=== PATIENT | male | born 1930 | race Caucasian/White ===

== ENCOUNTER 2016-11-21 18:44 | Emergency (ER) | payer OTHER, MEDICARE ==
[~2016-11-21] VITALS: Ht 177.8 cm; Wt 105.7 kg
[~2016-11-21 18:44] MED LIST: DECADRON4 MG PO; HYDROCODON-ACE1 EAC7 PO; HYTRIN10 MG PO; LO-DOSE ASPIRIN81 M2 PO; LOPRESSOR50 MG PO; MEDROL DOSEPAK4 MG PO; METFORMIN HCL500 MG PO; MORPHINE SULFAT15 M1 PO; SIMVASTATIN40 MG PO; SKELAXIN800 MG PO
[2016-11-21 22:40] VITALS: BP 116/54
== END 2016-11-21 22:42 | disposition home or self-care (01) ==
LOC: EME 18:44
DX: M25.511 Pain in right shoulder (principal); M25.512 Pain in left shoulder; M54.5 Low back pain; I10 Essential (primary) hypertension; W18.11XA Fall from or off toilet without subsequent striking against object, initial encounter
CPT/HCPCS: 71020; 72170; 99281; 99285

== ENCOUNTER 2016-11-23 15:06 | Inpatient (IN) | payer OTHER, MEDICARE ==
[~2016-11-23] VITALS: Ht 177.8 cm; Wt 89.0 kg
[2016-11-23 08:45] VITALS: BP 99/63
[2016-11-23 17:05] LABS: HEMATOCRIT 32.9 % (38.0-50.0); MCH 31.6 PG (29.0-34.0); MCHC 33.4 G/DL (30.0-36.0); MCV 94.5 FL (86-99); RBC DIS.WIDTH-CV 14.7 % (11.8-14.6); RBC DIS.WIDTH-SD 47.4 % (39-53); RED BLOOD COUNT 3.48 M/uL (4.00-5.50); WHITE BLOOD COUNT 10.5 K/uL (4.1-10.2)
[2016-11-23 17:07] LABS: EOSINOPHIL (%) 0 % (0-5); IMMATURE GRANULOCYTE (%) 0.3 % (0.0-0.7); IMMATURE GRANULOCYTE COUNT 0.3 K/uL; LYMPHOCYTE COUNT 0.1 K/uL (1.0-2.8); MONOCYTE (%) 3.1 % (3-12); MONOCYTE COUNT 0.3 K/uL (0-0.8); NEUTROPHIL (%) 95.5 % (45-76)
[2016-11-23 17:15] LABS: CHLORIDE 91 mEq/L (99-109); POTASSIUM 4.5 mEq/L (3.7-5.4); SODIUM 125 mEq/L (136-147)
[2016-11-23 17:18] LABS: GLUCOSE 283 mg/dL (70-99)
[2016-11-23 17:19] LABS: ANION GAP 11 MEQ/L (2-14)
[2016-11-23 17:20] LABS: TOTAL BILIRUBIN 0.8 mg/dL (0.0-1.0)
[2016-11-23 17:21] LABS: ALKALINE PHOSPHATASE 95 IU/L (3-129)
[2016-11-23 17:22] LABS: GFR ESTIMATE (CALCULATED) > 59 mL/min/
[2016-11-23 17:23] LABS: UREA NITROGEN (BUN) 23 mg/dL (9-23)
[2016-11-23 18:17] LABS: HEMATOLOGY COMMENT 1 SMEAR COMPATIBLE; MEAN PLAT.VOLUME 8.7 uM^3 (9.0-12.4); PLAT.SUFFICIENCY DECREASED; PLATELET COUNT 38 K/uL (156-360)
[2016-11-23] MEDS ORDERED: DURAGESIC25 MCG TD (18:37)
[2016-11-23] MEDS ORDERED: BENAZEPRIL HCL40 MG PO (18:37)
[2016-11-23] MEDS ORDERED: HYDROCODON-ACE1 EAC8 PO (18:38)
[2016-11-23 20:46] VITALS: BP 99/63
[2016-11-24] VITALS: BP 128/60
[2016-11-24 00:15] LABS: POINT-OF-CARE METER ID UU14149397
[2016-11-24 03:59] VITALS: BP 133/64
[2016-11-24 05:46] LABS: HEMATOCRIT 28.7 % (38.0-50.0); MCH 31.2 PG (29.0-34.0); MCHC 33.4 G/DL (30.0-36.0); MCV 93.2 FL (86-99); RBC DIS.WIDTH-CV 14.9 % (11.8-14.6); RBC DIS.WIDTH-SD 50.7 % (39-53); RED BLOOD COUNT 3.08 M/uL (4.00-5.50); WHITE BLOOD COUNT 7.5 K/uL (4.1-10.2)
[2016-11-24 06:15] LABS: ALKALINE PHOSPHATASE 74 IU/L (3-129); ANION GAP 7 MEQ/L (2-14); CHLORIDE 91 MEQ/L (99-109); GFR ESTIMATE (CALCULATED) > 59 mL/min/; GLUCOSE 235 mg/dL (70-99); POTASSIUM 4.1 MEQ/L (3.7-5.4); SAMPLE HEMOLYSIS CHECK 0; SAMPLE ICTERIC CHECK 0; SAMPLE LIPEMIA CHECK 0; SODIUM 122 MEQ/L (136-147); TOTAL BILIRUBIN 0.5 MG/DL (0.0-1.0); UREA NITROGEN (BUN) 26 mg/dL (9-23)
[2016-11-24 07:36] LABS: HEMATOLOGY COMMENT 1 SMEAR COMPATIBLE; MEAN PLAT.VOLUME 9.7 uM^3 (9.0-12.4); PLATELET COUNT 33 K/uL (156-360)
[2016-11-24 08:44] VITALS: BP 137/85
[2016-11-24 12:08] VITALS: BP 135/70
[2016-11-24 12:37] LABS: POINT-OF-CARE METER ID UU14149397
[2016-11-24 14:24] LABS: ANION GAP 9 MEQ/L (2-14); CHLORIDE 89 MEQ/L (99-109); GFR ESTIMATE (CALCULATED) > 59 mL/min/; GLUCOSE 210 mg/dL (70-99); POTASSIUM 4.3 MEQ/L (3.7-5.4); SAMPLE HEMOLYSIS CHECK 0; SAMPLE ICTERIC CHECK 0; SAMPLE LIPEMIA CHECK 0; SODIUM 125 MEQ/L (136-147); UREA NITROGEN (BUN) 24 mg/dL (9-23)
[2016-11-24 14:25] LABS: GLOBULINS 2.5 G/DL (2.3-3.5)
[2016-11-24 14:33] LABS: PSA FREE 0.29 ng/mL
[2016-11-24 16:31] VITALS: BP 142/80
[2016-11-24 17:10] LABS: POINT-OF-CARE METER ID UU14149397
[2016-11-24 20:07] LABS: INTER. NORMALIZED RATIO 1.1; PROTHROMBIN TIME 11.6 (9.2-11.2); PTT 31.1 (25-32)
[2016-11-24 20:35] LABS: FIBRINOGEN 518 MG/DL (160-450)
[2016-11-24 20:46] VITALS: BP 135/61
[2016-11-24 21:01] LABS: D-DIMER LATEX POSITIVE
[2016-11-24 21:46] LABS: POINT-OF-CARE METER ID UU14149397
[2016-11-24 21:46] LABS: SCHISTOCYTES RARE
[2016-11-25] VITALS (8 sets, daily range): BP systolic 96–144; BP diastolic 55–86
[2016-11-25 06:33] LABS: POINT-OF-CARE METER ID UU14149397
[2016-11-25 07:13] LABS: ALKALINE PHOSPHATASE 85 IU/L (3-129); ANION GAP 9 MEQ/L (2-14); CHLORIDE 92 MEQ/L (99-109); GFR ESTIMATE (CALCULATED) > 59 mL/min/; GLUCOSE 248 mg/dL (70-99); MAGNESIUM 1.9 mg/dl (1.3-2.7); POTASSIUM 4.3 MEQ/L (3.7-5.4); SAMPLE HEMOLYSIS CHECK 0; SAMPLE ICTERIC CHECK 0; SAMPLE LIPEMIA CHECK 0; SODIUM 123 MEQ/L (136-147); TOTAL BILIRUBIN 0.4 MG/DL (0.0-1.0); UREA NITROGEN (BUN) 27 mg/dL (9-23)
[2016-11-25 09:15] LABS: HPCA INDEX 0.07
[2016-11-25 11:54] LABS: ADD MIUA? YES; BILIRUBIN SMALL; BLOOD LARGE; COLOR DK YELLOW ((YELLOW)); GLUCOSE (STRIP) 500; KETONES 15; LEUKOCYTES SMALL; NITRITE NEGATIVE; PROTEIN (STRIP) 100; SPECIFIC GRAVITY 1.038 (1.000-1.030); UROBILINOGEN 0.2 MG/DL (0.2-1.0)
[2016-11-25 12:57] LABS: BACTERIA 1+; CASTS PRESENT /LPF; CRYSTALS NONE SEEN; EPITHELIAL CELLS NONE SEEN; FINE GRANULAR CASTS RARE /LPF; MUCUS NONE SEEN; UCUL ADDED? NO
[2016-11-25 13:06] LABS: UR CREATININE CONCENTRATION 132.8 MG/DL
[2016-11-25 15:01] LABS: Heparin Induced Plt Ab Negative (Negative)
[2016-11-25 16:55] LABS: UFH SRA Result Negative (Negative)
[2016-11-25 20:11] LABS: EOSINOPHIL (%) 0 % (0-5); HEMATOCRIT 25.1 % (38.0-50.0); IMMATURE GRANULOCYTE (%) 0.4 % (0.0-0.7); LYMPHOCYTE COUNT 0.1 K/uL (1.0-2.8); MCH 31.2 PG (29.0-34.0); MCHC 33.5 G/DL (30.0-36.0); MCV 93.3 FL (86-99); MONOCYTE (%) 3.8 % (3-12); MONOCYTE COUNT 0.2 K/uL (0-0.8); NEUTROPHIL (%) 93.8 % (45-76); NEUTROPHIL COUNT 4.7 K/uL (1.8-6.4); RBC DIS.WIDTH-CV 14.8 % (11.8-14.6); RBC DIS.WIDTH-SD 50.3 % (39-53); RED BLOOD COUNT 2.69 M/uL (4.00-5.50)
[2016-11-25 20:42] LABS: HEMATOLOGY COMMENT 1 SMEAR COMPATIBLE; MEAN PLAT.VOLUME 9.8 uM^3 (9.0-12.4); PLAT.SUFFICIENCY DECREASED; PLATELET COUNT 39 K/uL (156-360); USER ID SS
[2016-11-26 00:02] VITALS: BP 120/59
[2016-11-26 04:40] VITALS: BP 122/70
[2016-11-26 04:47] LABS: EOSINOPHIL (%) 0 % (0-5); IMMATURE GRANULOCYTE (%) 0.3 % (0.0-0.7); IMMATURE GRANULOCYTE COUNT 0.1 K/uL; LYMPHOCYTE COUNT 0.2 K/uL (1.0-2.8); MCH 31.2 PG (29.0-34.0); MCHC 33.2 G/DL (30.0-36.0); MONOCYTE (%) 3.8 % (3-12); MONOCYTE COUNT 0.2 K/uL (0-0.8); NEUTROPHIL (%) 90.9 % (45-76); NEUTROPHIL COUNT 3.6 K/uL (1.8-6.4); RBC DIS.WIDTH-CV 14.3 % (11.8-14.6); RBC DIS.WIDTH-SD 46.6 % (39-53); RED BLOOD COUNT 2.66 M/uL (4.00-5.50)
[2016-11-26 04:49] VITALS: BP 122/70
[2016-11-26 04:56] LABS: CHLORIDE 97 mEq/L (99-109); POTASSIUM 4.4 mEq/L (3.7-5.4); SODIUM 127 mEq/L (136-147)
[2016-11-26 04:58] LABS: GLUCOSE 271 mg/dL (70-99)
[2016-11-26 04:59] LABS: ANION GAP 10 MEQ/L (2-14)
[2016-11-26 05:02] LABS: GFR ESTIMATE (CALCULATED) > 59 mL/min/
[2016-11-26 05:03] LABS: UREA NITROGEN (BUN) 26 mg/dL (9-23)
[2016-11-26 06:11] LABS: PLAT.SUFFICIENCY DECREASED; PLATELET COUNT 49 K/uL (156-360); USER ID SLU
[2016-11-26 07:50] VITALS: BP 126/73
[2016-11-26 12:09] LABS: POINT-OF-CARE METER ID UU14149397
[2016-11-26 16:19] VITALS: BP 124/60
[2016-11-26 20:12] VITALS: BP 119/61
[2016-11-27 00:11] VITALS: BP 122/78
[2016-11-27 01:42] VITALS: BP 127/78
[2016-11-27 04:14] VITALS: BP 122/68
[2016-11-27 06:37] LABS: ANION GAP 7 MEQ/L (2-14); CHLORIDE 96 MEQ/L (99-109); GFR ESTIMATE (CALCULATED) > 59 mL/min/; GLUCOSE 267 mg/dL (70-99); HEMATOCRIT 26.8 % (38.0-50.0); MCH 31.3 PG (29.0-34.0); MCHC 33.6 G/DL (30.0-36.0); MCV 93.1 FL (86-99); MEAN PLAT.VOLUME 9.9 uM^3 (9.0-12.4); PLATELET COUNT 54 K/uL (156-360); POTASSIUM 4.6 MEQ/L (3.7-5.4); RBC DIS.WIDTH-CV 14.3 % (11.8-14.6); RBC DIS.WIDTH-SD 48.4 % (39-53); RED BLOOD COUNT 2.88 M/uL (4.00-5.50); SAMPLE HEMOLYSIS CHECK 0; SAMPLE ICTERIC CHECK 0; SAMPLE LIPEMIA CHECK 0; SODIUM 129 MEQ/L (136-147); TOTAL BILIRUBIN 0.4 MG/DL (0.0-1.0); UREA NITROGEN (BUN) 26 mg/dL (9-23)
[2016-11-27 06:40] LABS: WHITE BLOOD COUNT 2.6 K/uL (4.1-10.2)
[2016-11-27 06:41] LABS: ALKALINE PHOSPHATASE 181 IU/L (3-129)
[2016-11-27 07:58] VITALS: BP 157/76
[2016-11-27 16:56] VITALS: BP 164/92
[2016-11-28 01:42] VITALS: BP 132/65
[2016-11-28 03:38] VITALS: BP 142/86
[2016-11-28 05:02] LABS: EOSINOPHIL (%) 0 % (0-5); HEMATOCRIT 28.5 % (38.0-50.0); IMMATURE GRANULOCYTE COUNT 0.4 K/uL; LYMPHOCYTE COUNT 0.2 K/uL (1.0-2.8); MCH 31.9 PG (29.0-34.0); MCV 93.8 FL (86-99); MEAN PLAT.VOLUME 9.3 uM^3 (9.0-12.4); MONOCYTE (%) 4.6 % (3-12); MONOCYTE COUNT 0.2 K/uL (0-0.8); NEUTROPHIL COUNT 3.7 K/uL (1.8-6.4); PLATELET COUNT 70 K/uL (156-360); RBC DIS.WIDTH-SD 45.8 % (39-53); RED BLOOD COUNT 3.04 M/uL (4.00-5.50)
[2016-11-28 05:05] LABS: WHITE BLOOD COUNT 4.1 K/uL (4.1-10.2)
[2016-11-28 05:09] LABS: CHLORIDE 101 mEq/L (99-109); POTASSIUM 4.8 mEq/L (3.7-5.4); SODIUM 131 mEq/L (136-147)
[2016-11-28 05:11] LABS: GLUCOSE 218 mg/dL (70-99)
[2016-11-28 05:12] LABS: ANION GAP 7 MEQ/L (2-14)
[2016-11-28 05:15] LABS: GFR ESTIMATE (CALCULATED) > 59 mL/min/
[2016-11-28 05:16] LABS: UREA NITROGEN (BUN) 27 mg/dL (9-23)
[2016-11-28 05:18] LABS: ALKALINE PHOSPHATASE 172 IU/L (3-129); TOTAL BILIRUBIN 0.4 mg/dL (0.0-1.0)
[2016-11-28 08:00] VITALS: BP 129/67
[2016-11-28 13:55] LABS: ALBUMIN 2.19 G/DL (3.6-4.9); ALBUMIN PERCENT 45.6 %; ALPHA-1 GLOBULIN 0.43 G/DL (0.15-0.40); ALPHA-1 PERCENT 8.9 %; ALPHA-2 GLOBULIN 1.04 G/DL (0.45-0.85); ALPHA-2 PERCENT 21.6 %; BETA PERCENT 15.3 %; GAMMA PERCENT 8.6 %
[2016-11-28 15:25] LABS: POINT-OF-CARE METER ID UU14149397
[2016-11-28 16:00] VITALS: BP 136/80
[2016-11-28 21:10] VITALS: BP 135/73
[2016-11-28 23:35] LABS: CHLORIDE 100 mEq/L (99-109); POTASSIUM 4.6 mEq/L (3.7-5.4)
[2016-11-28 23:36] LABS: SODIUM 130 mEq/L (136-147)
[2016-11-28 23:38] LABS: GLUCOSE 236 mg/dL (70-99)
[2016-11-28 23:39] LABS: ANION GAP 7 MEQ/L (2-14)
[2016-11-28 23:40] LABS: TOTAL BILIRUBIN 0.4 mg/dL (0.0-1.0)
[2016-11-28 23:41] LABS: ALKALINE PHOSPHATASE 162 IU/L (3-129)
[2016-11-28 23:42] LABS: GFR ESTIMATE (CALCULATED) > 59 mL/min/
[2016-11-28 23:43] LABS: DIRECT BILIRUBIN 0.2 mg/dL (0.0-0.3); UREA NITROGEN (BUN) 27 mg/dL (9-23)
[2016-11-29 01:45] LABS: ADD MIUA? YES; BILIRUBIN NEGATIVE; BLOOD LARGE; COLOR YELLOW ((YELLOW)); GLUCOSE (STRIP) >=1000; KETONES NEGATIVE; LEUKOCYTES NEGATIVE; NITRITE NEGATIVE; PROTEIN (STRIP) NEGATIVE; SPECIFIC GRAVITY 1.028 (1.000-1.030); UROBILINOGEN 0.2 MG/DL (0.2-1.0)
[2016-11-29 02:17] LABS: RED BLOOD CELLS 20-30 /HPF (0-5)
[2016-11-29 02:18] LABS: BACTERIA 1+; EPITHELIAL CELLS RARE; MUCUS 2+; WHITE BLOOD CELLS 0-5 /HPF (0-5)
[2016-11-29 02:19] LABS: CASTS NONE SEEN /LPF; CRYSTALS NONE SEEN
[2016-11-29 04:51] VITALS: BP 139/70
[2016-11-29 07:32] LABS: ANION GAP 9 MEQ/L (2-14); CHLORIDE 98 MEQ/L (99-109); GFR ESTIMATE (CALCULATED) > 59 mL/min/; GLUCOSE 147 mg/dL (70-99); POTASSIUM 4.7 MEQ/L (3.7-5.4); SAMPLE HEMOLYSIS CHECK 1; SAMPLE ICTERIC CHECK 0; SAMPLE LIPEMIA CHECK 0; SODIUM 131 MEQ/L (136-147); UREA NITROGEN (BUN) 25 mg/dL (9-23)
[2016-11-29 08:49] VITALS: BP 141/62
[2016-11-29 12:47] VITALS: BP 121/61
[2016-11-29 16:45] VITALS: BP 150/72
[2016-11-29 17:08] LABS: POINT-OF-CARE METER ID UU14149397
[2016-11-29 21:31] LABS: POINT-OF-CARE METER ID UU14149397
[2016-11-29 22:08] VITALS: BP 143/74
[2016-11-29 23:21] VITALS: BP 153/81
[2016-11-30 04:26] VITALS: BP 159/80
[2016-11-30 05:57] LABS: NRBC (%) 0.5 /100 WBC (0-0)
[2016-11-30 06:13] LABS: EOSINOPHIL (%) 0 % (0-5); IMMATURE GRANULOCYTE (%) 2.1 % (0.0-0.7); IMMATURE GRANULOCYTE COUNT 0.1 K/uL; LYMPHOCYTE COUNT 0.3 K/uL (1.0-2.8); MCH 30.4 PG (29.0-34.0); MCHC 32.7 G/DL (30.0-36.0); MEAN PLAT.VOLUME 9.7 uM^3 (9.0-12.4); MONOCYTE COUNT 0.2 K/uL (0-0.8); NEUTROPHIL (%) 89.7 % (45-76); NEUTROPHIL COUNT 5.1 K/uL (1.8-6.4); RBC DIS.WIDTH-CV 14.8 % (11.8-14.6); RBC DIS.WIDTH-SD 50.6 % (39-53); RED BLOOD COUNT 3.55 M/uL (4.00-5.50)
[2016-11-30 06:17] LABS: POTASSIUM ND MEQ/L (3.7-5.4)
[2016-11-30 06:18] LABS: PLATELET COUNT 93 K/uL (156-360); WHITE BLOOD COUNT 5.6 K/uL (4.1-10.2)
[2016-11-30 06:24] LABS: HEMATOLOGY COMMENT 1 REV
[2016-11-30 06:29] LABS: ANION GAP 10 MEQ/L (2-14); CHLORIDE 97 MEQ/L (99-109); GFR ESTIMATE (CALCULATED) > 59 mL/min/; GLUCOSE 166 mg/dL (70-99); SAMPLE HEMOLYSIS CHECK 2; SAMPLE ICTERIC CHECK 0; SAMPLE LIPEMIA CHECK 0; SODIUM 132 MEQ/L (136-147); UREA NITROGEN (BUN) 18 mg/dL (9-23)
[2016-11-30 06:40] LABS: DIRECT BILIRUBIN 0.1 mg/dL (0.0-0.3)
[2016-11-30 06:41] LABS: ALKALINE PHOSPHATASE 135 IU/L (3-129); TOTAL BILIRUBIN 0.5 MG/DL (0.0-1.0)
[2016-11-30 07:48] LABS: POINT-OF-CARE METER ID UU13113717
[2016-11-30 08:00] VITALS: BP 128/72
[2016-11-30 09:24] LABS: POTASSIUM 4.7 MEQ/L (3.7-5.4)
[2016-11-30 11:41] LABS: POINT-OF-CARE METER ID UU13113717
[2016-11-30 12:08] VITALS: BP 127/68
[2016-11-30 16:00] VITALS: BP 120/65
[2016-11-30 19:36] VITALS: BP 116/59
[2016-11-30 21:36] LABS: POINT-OF-CARE METER ID UU14149397
[2016-12-01] VITALS (7 sets, daily range): BP systolic 97–136; BP diastolic 52–79
[2016-12-01 06:49] LABS: ANION GAP 5 MEQ/L (2-14); CHLORIDE 99 MEQ/L (99-109); GFR ESTIMATE (CALCULATED) > 59 mL/min/; GLUCOSE 133 mg/dL (70-99); POTASSIUM 4.7 MEQ/L (3.7-5.4); SAMPLE HEMOLYSIS CHECK 0; SAMPLE ICTERIC CHECK 0; SAMPLE LIPEMIA CHECK 0; SODIUM 128 MEQ/L (136-147); UREA NITROGEN (BUN) 16 mg/dL (9-23)
[2016-12-01 07:20] LABS: POINT-OF-CARE METER ID UU14149397
[2016-12-01 11:45] LABS: POINT-OF-CARE METER ID UU13113717
[2016-12-01 16:11] LABS: POINT-OF-CARE METER ID UU13113717
[2016-12-01 21:39] LABS: POINT-OF-CARE METER ID UU14149397
[2016-12-02] VITALS (8 sets, daily range): BP systolic 105–120; BP diastolic 56–76
[2016-12-02 06:40] LABS: POINT-OF-CARE METER ID UU13113717
[2016-12-02 09:39] LABS: ANION GAP 8 MEQ/L (2-14); CHLORIDE 96 MEQ/L (99-109); GFR ESTIMATE (CALCULATED) > 59 mL/min/; POTASSIUM 4.6 MEQ/L (3.7-5.4); SAMPLE HEMOLYSIS CHECK 0; SAMPLE ICTERIC CHECK 0; SAMPLE LIPEMIA CHECK 0; SODIUM 129 MEQ/L (136-147); UREA NITROGEN (BUN) 23 mg/dL (9-23)
[2016-12-02 09:51] LABS: GLUCOSE 223 mg/dL (70-99)
[2016-12-02 17:02] LABS: POINT-OF-CARE METER ID UU13113717
[2016-12-03 04:05] VITALS: BP 163/80
[2016-12-03 05:49] LABS: HEMATOCRIT 33.1 % (38.0-50.0); MCH 30.5 PG (29.0-34.0); MCHC 32.9 G/DL (30.0-36.0); MCV 92.7 FL (86-99); MEAN PLAT.VOLUME 9.7 uM^3 (9.0-12.4); PLATELET COUNT 108 K/uL (156-360); RBC DIS.WIDTH-CV 15.5 % (11.8-14.6); RBC DIS.WIDTH-SD 51.6 % (39-53); RED BLOOD COUNT 3.57 M/uL (4.00-5.50); WHITE BLOOD COUNT 7.2 K/uL (4.1-10.2)
[2016-12-03 06:21] LABS: ANION GAP 8 MEQ/L (2-14); CHLORIDE 100 MEQ/L (99-109); GFR ESTIMATE (CALCULATED) > 59 mL/min/; GLUCOSE 203 mg/dL (70-99); POTASSIUM 4.3 MEQ/L (3.7-5.4); SAMPLE HEMOLYSIS CHECK 0; SAMPLE ICTERIC CHECK 0; SAMPLE LIPEMIA CHECK 0; SODIUM 131 MEQ/L (136-147); TOTAL BILIRUBIN 0.4 MG/DL (0.0-1.0); UREA NITROGEN (BUN) 20 mg/dL (9-23)
[2016-12-03 06:23] LABS: ALKALINE PHOSPHATASE 101 IU/L (3-129)
[2016-12-03 06:52] LABS: EOSINOPHIL (%) 0 % (0-5); IMMATURE GRANULOCYTE (%) 4.3 % (0.0-0.7); IMMATURE GRANULOCYTE COUNT 0.3 K/uL; LYMPHOCYTE COUNT 0.5 K/uL (1.0-2.8); MONOCYTE (%) 3.9 % (3-12); MONOCYTE COUNT 0.3 K/uL (0-0.8); NEUTROPHIL (%) 84.5 % (45-76); NEUTROPHIL COUNT 6.1 K/uL (1.8-6.4)
[2016-12-03 07:02] LABS: HEMATOLOGY COMMENT 1 SMEAR COMPATIBLE; PLAT.SUFFICIENCY DECREASED
[2016-12-03 07:04] LABS: POINT-OF-CARE METER ID UU13113717
[2016-12-03 07:35] VITALS: BP 125/71
[2016-12-03 11:35] VITALS: BP 127/79
[2016-12-03 11:55] LABS: POINT-OF-CARE METER ID UU14149397
[2016-12-03 14:02] VITALS: BP 132/72
[2016-12-03 16:53] VITALS: BP 139/69
[2016-12-03 19:21] VITALS: BP 136/79
[2016-12-03 21:57] LABS: POINT-OF-CARE METER ID UU14149397
[2016-12-04] VITALS (8 sets, daily range): BP systolic 101–144; BP diastolic 56–81
[2016-12-04 22:17] LABS: POINT-OF-CARE METER ID UU14149397
[2016-12-05 04:23] VITALS: BP 130/69
[2016-12-05 06:22] LABS: ANION GAP 7 MEQ/L (2-14); CHLORIDE 101 MEQ/L (99-109); GFR ESTIMATE (CALCULATED) > 59 mL/min/; GLUCOSE 171 mg/dL (70-99); POTASSIUM 4.5 MEQ/L (3.7-5.4); SAMPLE HEMOLYSIS CHECK 2; SAMPLE ICTERIC CHECK 0; SAMPLE LIPEMIA CHECK 0; SODIUM 136 MEQ/L (136-147); UREA NITROGEN (BUN) 17 mg/dL (9-23)
[2016-12-05 06:56] LABS: POINT-OF-CARE METER ID UU14149397
[2016-12-05 08:58] VITALS: BP 132/78
[2016-12-05 11:15] VITALS: BP 124/68
[2016-12-05 12:23] LABS: POINT-OF-CARE METER ID UU14149397
[2016-12-05 16:14] VITALS: BP 103/66
[2016-12-05 16:37] LABS: POINT-OF-CARE METER ID UU14149397
[2016-12-05 19:26] VITALS: BP 123/66
[2016-12-05 21:44] LABS: POINT-OF-CARE METER ID UU14149397
[2016-12-05 23:52] VITALS: BP 139/87
[2016-12-06 03:40] VITALS: BP 125/77
[2016-12-06 06:22] LABS: ANION GAP 9 MEQ/L (2-14); CHLORIDE 101 MEQ/L (99-109); GFR ESTIMATE (CALCULATED) > 59 mL/min/; GLUCOSE 124 mg/dL (70-99); POTASSIUM 3.9 MEQ/L (3.7-5.4); SAMPLE HEMOLYSIS CHECK 0; SAMPLE ICTERIC CHECK 0; SAMPLE LIPEMIA CHECK 0; SODIUM 139 MEQ/L (136-147); UREA NITROGEN (BUN) 16 mg/dL (9-23)
[2016-12-06 06:39] LABS: POINT-OF-CARE METER ID UU14149397
[2016-12-06 08:32] VITALS: BP 122/62
[2016-12-06 17:03] VITALS: BP 142/58
[2016-12-06 17:27] LABS: POINT-OF-CARE METER ID UU14149397
[2016-12-06 20:00] VITALS: BP 121/58
[2016-12-06 21:54] LABS: POINT-OF-CARE METER ID UU13113717
[2016-12-07] VITALS (8 sets, daily range): BP systolic 95–125; BP diastolic 56–72
[2016-12-07 07:17] LABS: POINT-OF-CARE METER ID UU14149397
[2016-12-07 08:18] LABS: ANION GAP 6 MEQ/L (2-14); CHLORIDE 99 MEQ/L (99-109); GFR ESTIMATE (CALCULATED) > 59 mL/min/; GLUCOSE 114 mg/dL (70-99); POTASSIUM 4.2 MEQ/L (3.7-5.4); SAMPLE HEMOLYSIS CHECK 0; SAMPLE ICTERIC CHECK 0; SAMPLE LIPEMIA CHECK 0; SODIUM 136 MEQ/L (136-147); UREA NITROGEN (BUN) 18 mg/dL (9-23)
[2016-12-07 12:09] LABS: POINT-OF-CARE METER ID UU13113717
[2016-12-07 15:49] LABS: POINT-OF-CARE METER ID UU13113717
[2016-12-07 21:52] LABS: POINT-OF-CARE METER ID UU13113717
[2016-12-08 03:46] VITALS: BP 147/80
[2016-12-08 06:53] LABS: POINT-OF-CARE METER ID UU13113717
[2016-12-08 10:12] LABS: ADD MIUA? YES; BILIRUBIN NEGATIVE; BLOOD MODERATE; COLOR YELLOW ((YELLOW)); GLUCOSE (STRIP) NEGATIVE; KETONES NEGATIVE; LEUKOCYTES MODERATE; NITRITE NEGATIVE; PH, URINE 7.5 (5-8); PROTEIN (STRIP) NEGATIVE; SPECIFIC GRAVITY 1.025 (1.000-1.030)
[2016-12-08 10:33] LABS: BACTERIA NONE SEEN; CRYSTALS NONE SEEN; EPITHELIAL CELLS RARE; PATHOLOGICAL CAST NONE SEEN; SMALL ROUND CELL NONE SEEN; YEAST-LIKE CELL NONE SEEN
[2016-12-08 10:50] LABS: MUCUS NONE SEEN; WHITE BLOOD CELLS 15-20 /HPF (0-5)
[2016-12-08 10:51] LABS: CASTS NONE SEEN /LPF
[2016-12-08 11:01] LABS: ALKALINE PHOSPHATASE 88 IU/L (3-129); ANION GAP 8 MEQ/L (2-14); CHLORIDE 99 MEQ/L (99-109); GFR ESTIMATE (CALCULATED) > 59 mL/min/; POTASSIUM 4.7 MEQ/L (3.7-5.4); SAMPLE HEMOLYSIS CHECK 2; SAMPLE ICTERIC CHECK 0; SAMPLE LIPEMIA CHECK 0; SODIUM 134 MEQ/L (136-147); UREA NITROGEN (BUN) 18 mg/dL (9-23)
[2016-12-08 11:13] LABS: GLUCOSE 184 mg/dL (70-99); TOTAL BILIRUBIN 0.6 MG/DL (0.0-1.0)
[2016-12-08 12:17] LABS: POINT-OF-CARE METER ID UU14149397
[2016-12-08] MEDS ORDERED: [UNRECOGNIZED DRUG - CODE] IV (13:52)
[2016-12-08] MEDS ORDERED: ATENOLOL100 MG PO (13:59)
[2016-12-08] MEDS ORDERED: FENTANYL1 EAC1 TD (14:00)
[2016-12-08] MEDS ORDERED: HYCET 7.5 MG-3473 ML PO (14:04)
[2016-12-08] MEDS ORDERED: FUROSEMIDE20 MG PO (14:07)
[2016-12-08] MEDS ORDERED: MAG-AL PLUS SUS30 ML PO (14:09)
[2016-12-08] MEDS ORDERED: PANTOPRAZOLE SO40 MG PO (14:12)
[2016-12-08] MEDS ORDERED: DECADRON4 MG/ML 1M IV (14:13)
[2016-12-08] MEDS ORDERED: LEVEMIR100 UNIT/2 SC (14:14)
[2016-12-08] MEDS ORDERED: NOVOLOG PE100 UNITS/ SC (14:14)
[2016-12-08] MEDS ORDERED: ROCEPHIN1000 MG IV (14:15)
[2016-12-09] MEDS ORDERED: KRISTALOSE10 GM PO (16:30)
== END 2016-12-08 14:28 | DRG 540 ==
LOC: EME 15:06 → EDOF 18:04 → 3EAST 18:04
PROVIDERS: Emergency Medicine; Family Medicine; Hospitalist; Internal Medicine Infectious Disease; Internal Medicine Medical Oncology; Internal Medicine Nephrology
DX: M46.23 Osteomyelitis of vertebra, cervicothoracic region (principal); G95.29 Other cord compression; L89.152 Pressure ulcer of sacral region, stage 2; G82.20 Paraplegia, unspecified; M84.68XA Pathological fracture in other disease, other site, initial encounter for fracture; E22.2 Syndrome of inappropriate secretion of antidiuretic hormone; I10 Essential (primary) hypertension; Z85.46 Personal history of malignant neoplasm of prostate; D69.6 Thrombocytopenia, unspecified; R62.7 Adult failure to thrive; I25.10 Atherosclerotic heart disease of native coronary artery without angina pectoris; E11.65 Type 2 diabetes mellitus with hyperglycemia; I48.91 Unspecified atrial fibrillation; Z68.32 Body mass index [BMI] 32.0-32.9, adult; E66.9 Obesity, unspecified; Z95.2 Presence of prosthetic heart valve; E78.5 Hyperlipidemia, unspecified; Z91.81 History of falling; R32 Unspecified urinary incontinence; R41.0 Disorientation, unspecified; D64.9 Anemia, unspecified; B95.5 Unspecified streptococcus as the cause of diseases classified elsewhere; N31.9 Neuromuscular dysfunction of bladder, unspecified; Z95.3 Presence of xenogenic heart valve; N39.0 Urinary tract infection, site not specified
CPT/HCPCS: 71010; 71020; 71260; 72170; 74176; 76770; 76937; 80048; 80048 91; 80053; 80069; 80076; 80202; 81003; 82140; 82436; 82533 91; 82570; 82948; 83605; 83735; 83883 90; 83930; 83935; 84100; 84133; 84154 GA; 84156; 84165; 84300; 84443; 84550; 84999; 85025; 85027; 85378; 85384; 85610; 85730; 86022 90; 86803; 87040; 87077; 87801; 93306; 97530 GO; 97530 GP; 99281; 99285; C1755; C9113; G0103; J0696; J1100; J1630; J1815; J2270; J2540; J3370; J7030; J7050

== ENCOUNTER 2016-12-09 12:33 | Emergency (ER) | payer OTHER, MEDICARE ==
[~2016-12-09] VITALS: Ht 177.8 cm; Wt 113.8 kg
[~2016-12-09 12:33] MED LIST changes: +ATENOLOL100 MG PO; +BENAZEPRIL HCL40 MG PO; +DECADRON4 MG/ML 1M IV; +DURAGESIC25 MCG TD; +FENTANYL1 EAC1 TD; +FUROSEMIDE20 MG PO; +HYCET 7.5 MG-3473 ML PO; +HYDROCODON-ACE1 EAC8 PO; +LEVEMIR100 UNIT/2 SC; +MAG-AL PLUS SUS30 ML PO; +NOVOLOG PE100 UNITS/ SC; +PANTOPRAZOLE SO40 MG PO; +ROCEPHIN1000 MG IV; +[UNRECOGNIZED DRUG - CODE] IV
[2016-12-09 14:22] LABS: HEMATOCRIT 33.3 % (38.0-50.0); MCHC 33.6 G/DL (30.0-36.0); MCV 95.1 FL (86-99); PLATELET COUNT 92 K/uL (156-360); RBC DIS.WIDTH-SD 54.8 % (39-53); WHITE BLOOD COUNT 9.3 K/uL (4.1-10.2)
[2016-12-09 14:25] LABS: EOSINOPHIL (%) 0 % (0-5); IMMATURE GRANULOCYTE (%) 1.6 % (0.0-0.7); IMMATURE GRANULOCYTE COUNT 1.5 K/uL; LYMPHOCYTE COUNT 1.3 K/uL (1.0-2.8); MONOCYTE (%) 4.2 % (3-12); MONOCYTE COUNT 0.4 K/uL (0-0.8); NEUTROPHIL (%) 80.5 % (45-76); NEUTROPHIL COUNT 7.5 K/uL (1.8-6.4)
[2016-12-09 14:37] LABS: CHLORIDE 96 mEq/L (99-109); SODIUM 131 mEq/L (136-147)
[2016-12-09 14:39] LABS: POTASSIUM 3.7 mEq/L (3.7-5.4)
[2016-12-09 14:40] LABS: ANION GAP 11 MEQ/L (2-14)
[2016-12-09 14:41] LABS: TOTAL BILIRUBIN 0.7 mg/dL (0.0-1.0)
[2016-12-09 14:43] LABS: ALKALINE PHOSPHATASE 114 IU/L (3-129); GFR ESTIMATE (CALCULATED) > 59 mL/min/; GLUCOSE 107 mg/dL (70-99)
[2016-12-09 14:44] LABS: UREA NITROGEN (BUN) 22 mg/dL (9-23)
[2016-12-09] MEDS ORDERED: KRISTALOSE10 GM PO (16:30)
[2016-12-09 17:14] LABS: ADD MIUA? YES; BILIRUBIN NEGATIVE; BLOOD NEGATIVE; COLOR YELLOW ((YELLOW)); GLUCOSE (STRIP) NEGATIVE; KETONES NEGATIVE; LEUKOCYTES SMALL; NITRITE NEGATIVE; PROTEIN (STRIP) NEGATIVE
[2016-12-09 17:15] VITALS: BP 105/60
[2016-12-09 18:39] LABS: BACTERIA RARE; CASTS NONE SEEN /LPF; CRYSTALS NONE SEEN; EPITHELIAL CELLS RARE; MUCUS 1+; OTHER BUDDING YEAST; RED BLOOD CELLS 0-5 /HPF (0-5); UCUL ADDED? NO
== END 2016-12-09 18:54 ==
LOC: EME 12:33
PROVIDERS: Emergency Medicine
PROC: 05HB33Z Insertion of Infusion Device into Right Basilic Vein, Percutaneous Approach (ICD-10-PCS; principal; 2016-12-09)
DX: K59.00 Constipation, unspecified (principal); N39.0 Urinary tract infection, site not specified; I10 Essential (primary) hypertension; E11.9 Type 2 diabetes mellitus without complications; Z79.84 Long term (current) use of oral hypoglycemic drugs; Z79.82 Long term (current) use of aspirin
CPT/HCPCS: 74177; 76937; 80053; 81003; 85025; 86850; 86900; 86901; 99281; 99285; J0696; J2270; J2405; J7030; J7050

== ENCOUNTER 2016-12-15 14:58 | Emergency (ER) | payer OTHER, MEDICARE ==
[~2016-12-15] VITALS: Ht 177.8 cm; Wt 102.2 kg
[~2016-12-15 14:58] MED LIST changes: +KRISTALOSE10 GM PO
[2016-12-15 16:38] LABS: HEMATOCRIT 29.1 % (38.0-50.0); MCH 32.2 PG (29.0-34.0); MCHC 33.3 G/DL (30.0-36.0); MCV 96.7 FL (86-99); RBC DIS.WIDTH-CV 17.6 % (11.8-14.6); RBC DIS.WIDTH-SD 57.6 % (39-53); RED BLOOD COUNT 3.01 M/uL (4.00-5.50)
[2016-12-15 16:39] LABS: MEAN PLAT.VOLUME 9.2 uM^3 (9.0-12.4)
[2016-12-15 16:40] LABS: PLATELET COUNT 145 K/uL (156-360)
[2016-12-15 16:46] LABS: INTER. NORMALIZED RATIO 1.1; PROTHROMBIN TIME 11.1 (9.2-11.2); PTT 26.9 (25-32)
[2016-12-15 16:47] LABS: CHLORIDE 97 mEq/L (99-109); SODIUM 129 mEq/L (136-147)
[2016-12-15 16:50] LABS: GLUCOSE 201 mg/dL (70-99)
[2016-12-15 16:51] LABS: ANION GAP 5 MEQ/L (2-14)
[2016-12-15 16:53] LABS: ALKALINE PHOSPHATASE 106 IU/L (3-129); GFR ESTIMATE (CALCULATED) > 59 mL/min/
[2016-12-15 16:54] LABS: UREA NITROGEN (BUN) 13 mg/dL (9-23)
[2016-12-15 17:11] LABS: POTASSIUM 5.4 mEq/L (3.7-5.4); TOTAL BILIRUBIN 0.4 mg/dL (0.0-1.0)
[2016-12-15] MEDS ORDERED: CHILD ASPIRIN81 M1 PO (18:05)
[2016-12-15] MEDS ORDERED: SODIUM CHLORIDE1 G1 PO (18:06)
[2016-12-15] MEDS ORDERED: LORCET 5-325 M1 EACH PO (18:07)
[2016-12-15] MEDS ORDERED: HALDOL0.5 MG PO (18:08)
[2016-12-15] MEDS ORDERED: DEXAMETHASO4 MG/1 ML IV (18:09)
[2016-12-15] MEDS ORDERED: GLUCAGEN1 MG IM ×2 (18:10→18:11)
[2016-12-15] MEDS ORDERED: LEVEMIR FL100 UNIT/1 SC (18:11)
[2016-12-15] MEDS ORDERED: ELIQUIS2.5 MG PO (18:13)
[2016-12-15 21:53] VITALS: BP 138/65
== END 2016-12-15 22:17 ==
LOC: EME 14:58
PROVIDERS: Emergency Medicine
DX: E86.0 Dehydration (principal); E11.9 Type 2 diabetes mellitus without complications; I10 Essential (primary) hypertension; Z79.82 Long term (current) use of aspirin; Z79.4 Long term (current) use of insulin
CPT/HCPCS: 71010; 80053; 83605; 85027; 85610; 85730; 86850; 86900; 86901; 93005; 99281; 99285; J7030

== ENCOUNTER 2016-12-22 10:55 | Inpatient (IN) | payer OTHER, MEDICARE ==
[2016-12-22] VITALS (13 sets, daily range): BP systolic 89–135; BP diastolic 34–94
[~2016-12-22] VITALS: Ht 167.6 cm; Wt 107.2 kg
[~2016-12-22 10:55] MED LIST changes: +CHILD ASPIRIN81 M1 PO; +DEXAMETHASO4 MG/1 ML IV; +ELIQUIS2.5 MG PO; +GLUCAGEN1 MG IM; +HALDOL0.5 MG PO; +LEVEMIR FL100 UNIT/1 SC; +LORCET 5-325 M1 EACH PO; +SODIUM CHLORIDE1 G1 PO
[2016-12-22 12:01] LABS: HEMATOCRIT 26.2 % (38.0-50.0); MCH 32.8 PG (29.0-34.0); MCHC 32.8 G/DL (30.0-36.0); MEAN PLAT.VOLUME 8.7 uM^3 (9.0-12.4); PLATELET COUNT 159 K/uL (156-360); RBC DIS.WIDTH-CV 19.1 % (11.8-14.6); RBC DIS.WIDTH-SD 64.9 % (39-53); RED BLOOD COUNT 2.62 M/uL (4.00-5.50)
[2016-12-22 12:12] LABS: CHLORIDE 99 mEq/L (99-109); POTASSIUM 4.7 mEq/L (3.7-5.4); SODIUM 132 mEq/L (136-147)
[2016-12-22 12:14] LABS: GLUCOSE 170 mg/dL (70-99)
[2016-12-22 12:15] LABS: ANION GAP 7 MEQ/L (2-14); INTER. NORMALIZED RATIO 1.1; PTT 25.7 (25-32)
[2016-12-22 12:17] LABS: TOTAL BILIRUBIN 0.2 mg/dL (0.0-1.0)
[2016-12-22 12:18] LABS: ALKALINE PHOSPHATASE 97 IU/L (3-129); GFR ESTIMATE (CALCULATED) > 59 mL/min/
[2016-12-22 12:19] LABS: UREA NITROGEN (BUN) 15 mg/dL (9-23)
[2016-12-22] MEDS ORDERED: ATENOLOL100 MG PO (14:42)
[2016-12-22] MEDS ORDERED: CONSTULOSE10 GM/15 M PO (14:46)
[2016-12-22] MEDS ORDERED: PROTONIX40 MG PO (14:52)
[2016-12-22] MEDS ORDERED: [UNRECOGNIZED DRUG - CODE] IV (16:26)
[2016-12-22 22:41] LABS: HEMATOCRIT 32.8 % (38.0-50.0)
[2016-12-22 22:43] LABS: MCV 95.9 FL (86-99)
[2016-12-22 23:03] LABS: METH RESISTANT S AUREUS PCR NEGATIVE (NEGATIVE)
[2016-12-22 23:05] LABS: PROBE CHECK PASS; SPECIMEN PROCESSING CONTROL PASS
[2016-12-22 23:06] LABS: POINT-OF-CARE METER ID UU14174217
[2016-12-23] VITALS (23 sets, daily range): BP systolic 80–135; BP diastolic 31–73
[2016-12-23 04:43] LABS: HEMATOCRIT 29.2 % (38.0-50.0); MCV 94.2 FL (86-99)
[2016-12-23 07:29] LABS: ADD MIUA? YES; BILIRUBIN NEGATIVE; BLOOD MODERATE; COLOR YELLOW ((YELLOW)); GLUCOSE (STRIP) NEGATIVE; KETONES NEGATIVE; LEUKOCYTES MODERATE; NITRITE NEGATIVE; PROTEIN (STRIP) NEGATIVE; SPECIFIC GRAVITY 1.015 (1.000-1.030); UROBILINOGEN 0.2 MG/DL (0.2-1.0)
[2016-12-23 07:51] LABS: POINT-OF-CARE METER ID UU13113803
[2016-12-23 07:52] LABS: BACTERIA 1+ /HPF; EPITHELIAL CELLS NONE SEEN /HPF; MUCUS NONE SEEN /LPF; RED BLOOD CELLS 20-30 /HPF (0-5); UCUL ADDED? YES; WHITE BLOOD CELLS TNTC /HPF (0-5)
[2016-12-23 08:38] LABS: HEMATOCRIT 29.8 % (38.0-50.0); MCV 94.9 FL (86-99)
[2016-12-23 13:09] LABS: POINT-OF-CARE METER ID UU13113803
[2016-12-23 14:03] LABS: HEMATOCRIT 30.2 % (38.0-50.0); MCV 95.9 FL (86-99)
[2016-12-23 14:41] LABS: POINT-OF-CARE METER ID UU13113694
[2016-12-23 17:30] LABS: POINT-OF-CARE METER ID UU14174217
[2016-12-23 19:56] LABS: HEMATOCRIT 28.2 % (38.0-50.0); MCV 97.2 FL (86-99)
[2016-12-23 22:46] LABS: POINT-OF-CARE METER ID UU13113748
[2016-12-24] VITALS (15 sets, daily range): BP systolic 88–162; BP diastolic 53–109
[2016-12-24 02:45] LABS: HEMATOCRIT 27.4 % (38.0-50.0); MCV 96.5 FL (86-99)
[2016-12-24 08:26] LABS: POINT-OF-CARE METER ID UU13113731
[2016-12-24 09:24] LABS: HEMATOCRIT 29.1 % (38.0-50.0); MCH 32.1 PG (29.0-34.0); MCV 97.3 FL (86-99); MEAN PLAT.VOLUME 9.4 uM^3 (9.0-12.4); NRBC (%) 0.5 /100 WBC (0-0); PLATELET COUNT 114 K/uL (156-360); RBC DIS.WIDTH-CV 19.7 % (11.8-14.6); RBC DIS.WIDTH-SD 66.8 % (39-53); RED BLOOD COUNT 2.99 M/uL (4.00-5.50); WHITE BLOOD COUNT 8.7 K/uL (4.1-10.2)
[2016-12-24 10:11] LABS: EOSINOPHIL (%) 0.1 % (0-5); HEMATOLOGY COMMENT 1 SMEAR COMPATIBLE; IMMATURE GRANULOCYTE (%) 2.1 % (0.0-0.7); IMMATURE GRANULOCYTE COUNT 0.2 K/uL; LYMPHOCYTE COUNT 1.4 K/uL (1.0-2.8); MONOCYTE (%) 6.4 % (3-12); MONOCYTE COUNT 0.6 K/uL (0-0.8); NEUTROPHIL (%) 74.8 % (45-76); NEUTROPHIL COUNT 6.5 K/uL (1.8-6.4); PLAT.SUFFICIENCY ADEQUATE
[2016-12-24 11:24] LABS: POINT-OF-CARE METER ID UU13113731
[2016-12-24 17:09] LABS: POINT-OF-CARE METER ID UU13113748
[2016-12-24 18:37] LABS: HEMATOCRIT 27.7 % (38.0-50.0); MCV 98.6 FL (86-99)
[2016-12-25 00:07] LABS: POINT-OF-CARE METER ID UU13113725
[2016-12-25 06:25] LABS: POINT-OF-CARE METER ID UU13113725
[2016-12-25 09:28] VITALS: BP 173/89
[2016-12-25 12:57] LABS: HEMATOCRIT 26.6 % (38.0-50.0); MCV 98.9 FL (86-99)
[2016-12-25 16:30] VITALS: BP 113/68
[2016-12-25 20:10] VITALS: BP 94/55
[2016-12-25 20:38] LABS: POINT-OF-CARE METER ID UU13113725
[2016-12-25 22:28] LABS: MCV 98.1 FL (86-99)
[2016-12-25 23:40] VITALS: BP 104/58
[2016-12-26 07:52] VITALS: BP 109/67
[2016-12-26 09:14] LABS: HEMATOCRIT 26.3 % (38.0-50.0); MCV 98.5 FL (86-99)
[2016-12-26 11:38] VITALS: BP 142/56
[2016-12-26 15:03] LABS: POINT-OF-CARE METER ID UU13113694
[2016-12-26 15:59] VITALS: BP 128/78
[2016-12-26 19:18] LABS: HEMATOCRIT 27.4 % (38.0-50.0); MCV 99.3 FL (86-99)
[2016-12-26 19:35] VITALS: BP 124/73
[2016-12-26 20:35] LABS: POINT-OF-CARE METER ID UU13113725
[2016-12-26 23:13] VITALS: BP 116/62
[2016-12-27 04:26] VITALS: BP 141/78
[2016-12-27 06:04] LABS: POINT-OF-CARE METER ID UU13113725
[2016-12-27 07:42] LABS: HEMATOCRIT 23.9 % (38.0-50.0); MCH 32.4 PG (29.0-34.0); MCHC 32.6 G/DL (30.0-36.0); MCV 99.2 FL (86-99); MEAN PLAT.VOLUME 8.7 uM^3 (9.0-12.4); PLATELET COUNT 87 K/uL (156-360); RBC DIS.WIDTH-CV 20.2 % (11.8-14.6); RBC DIS.WIDTH-SD 70.6 % (39-53); RED BLOOD COUNT 2.41 M/uL (4.00-5.50)
[2016-12-27 07:44] LABS: WHITE BLOOD COUNT 4.2 K/uL (4.1-10.2)
[2016-12-27 08:35] VITALS: BP 124/56
[2016-12-27 11:43] LABS: POINT-OF-CARE METER ID UU13113725
[2016-12-27] MEDS ORDERED: LASIX40 MG PO (13:51)
[2016-12-27] MEDS ORDERED: DEXAMETHASO4 MG/1 ML PO (13:56)
[2016-12-27] MEDS ORDERED: SANTYL30 GM TP (14:06)
[2016-12-27] MEDS ORDERED: DECADRON4 MG/ML 1M IV (15:12)
== END 2016-12-27 16:15 | disposition designated cancer center or children's hospital (05) | DRG 378 ==
LOC: EME 10:55 → 4WEST 14:53 → EDOF 14:53 → 5EAST 14:53 → 4WEST 19:14 → 5EAST 12-24 21:06
PROVIDERS: Emergency Medicine; Family Medicine; Internal Medicine Gastroenterology; Internal Medicine Pulmonary Disease; Surgery
DX: K55.21 Angiodysplasia of colon with hemorrhage (principal); E87.2 Acidosis; D62 Acute posthemorrhagic anemia; E87.1 Hypo-osmolality and hyponatremia; M46.23 Osteomyelitis of vertebra, cervicothoracic region; G82.20 Paraplegia, unspecified; J90 Pleural effusion, not elsewhere classified; C79.51 Secondary malignant neoplasm of bone; K62.5 Hemorrhage of anus and rectum; L89.150 Pressure ulcer of sacral region, unstageable; I48.0 Paroxysmal atrial fibrillation; L89.320 Pressure ulcer of left buttock, unstageable; I25.10 Atherosclerotic heart disease of native coronary artery without angina pectoris; D69.6 Thrombocytopenia, unspecified; E11.65 Type 2 diabetes mellitus with hyperglycemia; I12.9 Hypertensive chronic kidney disease with stage 1 through stage 4 chronic kidney disease, or unspecified chronic kidney disease; E66.9 Obesity, unspecified; M19.90 Unspecified osteoarthritis, unspecified site; E78.5 Hyperlipidemia, unspecified; G89.29 Other chronic pain; E11.22 Type 2 diabetes mellitus with diabetic chronic kidney disease; N18.9 Chronic kidney disease, unspecified; E83.51 Hypocalcemia; K64.8 Other hemorrhoids; E87.8 Other disorders of electrolyte and fluid balance, not elsewhere classified; R15.9 Full incontinence of feces; K29.60 Other gastritis without bleeding; K29.80 Duodenitis without bleeding; I45.10 Unspecified right bundle-branch block; K57.30 Diverticulosis of large intestine without perforation or abscess without bleeding; Z95.2 Presence of prosthetic heart valve; Z68.38 Body mass index [BMI] 38.0-38.9, adult; Z85.820 Personal history of malignant melanoma of skin; Z79.01 Long term (current) use of anticoagulants
CPT/HCPCS: 71010; 80053; 81003; 82948; 83605; 85014; 85018; 85025; 85027; 85610; 85730; 86850; 86900; 86901; 86920; 87040; 87081; 87086; 87106; 87641; 88305; 88342 TC; 93005; 94799; 99281; 99285; C9113; C9132; J0696; J1100; J1815; J1940; J2270; J2540; J7040; J7050; P9016

== ENCOUNTER 2017-01-03 10:18 | Emergency (ER) | payer OTHER, MEDICARE ==
[~2017-01-03] VITALS: Ht 182.9 cm; Wt 111.0 kg
[2017-01-03] VITALS (11 sets, daily range): BP systolic 102–204; BP diastolic 41–175
[~2017-01-03 10:18] MED LIST changes: +CONSTULOSE10 GM/15 M PO; +DEXAMETHASO4 MG/1 ML PO; +LASIX40 MG PO; +PROTONIX40 MG PO; +SANTYL30 GM TP
[2017-01-03 11:56] LABS: CHLORIDE 99 mEq/L (99-109); POTASSIUM 3.6 mEq/L (3.7-5.4); SODIUM 141 mEq/L (136-147)
[2017-01-03 11:58] LABS: GLUCOSE 181 mg/dL (70-99)
[2017-01-03 11:58] LABS: EOSINOPHIL (%) 0 % (0-5); HEMATOCRIT 30.2 % (38.0-50.0); IMMATURE GRANULOCYTE (%) 0.8 % (0.0-0.7); IMMATURE GRANULOCYTE COUNT 0.6 K/uL; LYMPHOCYTE COUNT 0.7 K/uL (1.0-2.8); MCH 32.5 PG (29.0-34.0); MCHC 31.5 G/DL (30.0-36.0); MEAN PLAT.VOLUME 8.5 uM^3 (9.0-12.4); MONOCYTE (%) 4.9 % (3-12); MONOCYTE COUNT 0.4 K/uL (0-0.8); NEUTROPHIL (%) 85.4 % (45-76); NEUTROPHIL COUNT 6.8 K/uL (1.8-6.4); RBC DIS.WIDTH-CV 20.3 % (11.8-14.6); RBC DIS.WIDTH-SD 72.2 % (39-53)
[2017-01-03 11:59] LABS: ANION GAP 10 MEQ/L (2-14)
[2017-01-03 12:00] LABS: TOTAL BILIRUBIN 0.4 mg/dL (0.0-1.0)
[2017-01-03 12:01] LABS: ALKALINE PHOSPHATASE 104 IU/L (3-129)
[2017-01-03 12:02] LABS: GFR ESTIMATE (CALCULATED) > 59 mL/min/
[2017-01-03 12:03] LABS: MCV 103.4 FL (86-99); PLATELET COUNT 161 K/uL (156-360); RED BLOOD COUNT 2.92 M/uL (4.00-5.50)
[2017-01-03 12:03] LABS: UREA NITROGEN (BUN) 16 mg/dL (9-23)
[2017-01-03] MEDS ORDERED: LASIX100 MG/10 ML IV ×2 (13:16→13:17)
[2017-01-03] MEDS ORDERED: LASIX40 MG PO (13:16)
[2017-01-03] MEDS ORDERED: GLUCOPHAGE500 MG PO (13:17)
[2017-01-03] MEDS ORDERED: SODIUM CHLORIDE1 G1 PO (13:18)
[2017-01-03] MEDS ORDERED: DURAGESIC50 MCG TD (13:18)
[2017-01-03] MEDS ORDERED: HALDOL0.5 MG PO (13:19)
[2017-01-03] MEDS ORDERED: LORTAB 5-325 M1 EACH PO (13:19)
[2017-01-03] MEDS ORDERED: DEXAMETHASO4 MG/1 ML IV (13:20)
[2017-01-03] MEDS ORDERED: PROTONIX40 MG PO (13:23)
[2017-01-03] MEDS ORDERED: NOVOLOG PE100 UNITS/ SC (13:24)
[2017-01-03] MEDS ORDERED: GLUCAGON1 MG IM (13:25)
[2017-01-03] MEDS ORDERED: MAALOX ADVANCE355 ML PO (13:26)
[2017-01-03] MEDS ORDERED: [UNRECOGNIZED DRUG - CODE] IV (13:30)
[2017-01-03] MEDS ORDERED: TENORMIN100 MG PO (13:30)
[2017-01-03] MEDS ORDERED: SILVASORB1.5 OZ TP (13:31)
[2017-01-03] MEDS ORDERED: BAZA ANTIFUNGAL57 GM TP (13:33)
[2017-01-03] MEDS ORDERED: SANTYL30 GM TP (13:33)
[2017-01-03] MEDS ORDERED: AQUAPHOR OINTM105 GM TP (13:34)
== END 2017-01-03 17:52 | disposition designated cancer center or children's hospital (05) ==
LOC: EME 10:18
PROVIDERS: Emergency Medicine
DX: L89.152 Pressure ulcer of sacral region, stage 2 (principal); K62.5 Hemorrhage of anus and rectum; I10 Essential (primary) hypertension; G82.20 Paraplegia, unspecified; G89.29 Other chronic pain
CPT/HCPCS: 71010; 74177; 80053; 83605; 85025; 86850; 86900; 86901; 93005; 99281; 99285; J2540